=== PATIENT | male | born 1945 | race Caucasian/White ===

== ENCOUNTER 2016-11-20 08:43 | Outpatient (CLI) | payer MEDICARE | END 2016-11-20 08:44 | disposition home or self-care (01) | DX: S46.812A Strain of other muscles, fascia and tendons at shoulder and upper arm level, left arm, initial encounter (principal); M24.012 Loose body in left shoulder; M75.22 Bicipital tendinitis, left shoulder; M75.82 Other shoulder lesions, left shoulder ==

== ENCOUNTER 2017-02-22 09:00 | Outpatient (CLI) | payer MEDICARE | END 2017-02-22 09:01 | disposition home or self-care (01) | DX: R73.01 Impaired fasting glucose (principal) ==

== ENCOUNTER 2017-06-08 10:39 | Emergency (ER) | payer MEDICARE ==
[2017-06-08 10:46] VITALS: BP 171/75
[2017-06-08] MEDS ORDERED: LIDOCAINE PATCH 5% TOP STA (12:44)
[2017-06-08] MEDS ORDERED: DEXAMETHASONE 10 MG/ML VIAL PO STA (12:44)
--- NOTE | 2017-06-08 12:47 | ED Physician Documentation ---
History of Present Illness - Stated complaint Stated Complaint: NECK PX - Chief complaint Chief Complaint: Heent - Additonal information Additional information: hx from pt 71 male known cervical HNP lot of activity recently fishing and crabbing 3 days ago started with ant chest pain, that has now moved to his left neck chest pain was not changed by movement or palpation, also no associated fever cough soa NV diaphoresis neck pain is worse with moving, was rad down ulnar aspect arm but not now, no numbness or weakness, no leg sx, no incont no fevers Review of Systems Constitutional: denies: Fever, Chills Cardiac: reports: Chest pain / pressure Respiratory: denies: Dyspnea GI: denies: Abdominal Pain, Nausea, Vomiting : denies: Incontinent Musculoskeletal: reports: Neck pain, Extremity pain (rad down left ulnar arm to elbow) Neurologic: denies: Focal weakness, Numbness Endocrine: denies: Easy bruising / bleeding Immunocompromised: denies: Immunocompromised PD PAST MEDICAL HISTORY - Past Medical History Past Medical History: Yes Cardiovascular: None Respiratory: Sleep apnea Endocrine/Autoimmune: None GI: GERD, Colon polyps : None HEENT: None Psych: None Musculoskeletal: None Derm: None Other Past Medical History: hyperglycemia - Past Surgical History Past Surgical History: Yes Ortho: Rotator cuff repair HEENT: Tonsil/Adenoidectomy - Present Medications Home Medications: Ambulatory Orders Medication Instructions Recorded Confirmed Aspirin 81 mg PO DAILY 09/14/16 06/08/17 Tadalafil [Cialis] 10 mg PO PRN 09/14/16 06/08/17 raNITIdine [Zantac] 150 mg PO DAILY 09/14/16 09/14/16 Carisoprodol [Soma] 350 mg PO QPM PRN #7 tablet 06/08/17 Lidocaine Patch 5% [Lidoderm Patch] 1 each TOP DAILY PRN #10 patch 06/08/17 predniSONE [Deltasone] 20 mg PO [id number] #21 tab 06/08/17 - Allergies Allergies/Adverse Reactions: Allergies Allergy/AdvReac Type Severity Reaction Status Date / Time No Known Drug Allergies Allergy Verified 11/22/15 13:38 - Social History Does the pt smoke?: No Smoking Status: Never smoker Does the pt drink ETOH?: Yes Does the pt have substance abuse?: Yes Substance Use and Type: Marijuana PD ED PE NORMAL - Vitals Vital signs reviewed: Yes - Neck Neck: No bony TTP, Other (left sided ST TTP and limited ROM, no rash no bruising no swelling) - Cardiac Cardiac: RRR - Respiratory Respiratory: No respiratory distress, Clear bilaterally, Other (chest wall non TTP no rash) - Abdomen Abdomen: Soft, Non tender - Derm Derm: Normal color, No rash - Neuro Neuro: Alert and oriented X 3, No motor deficit, No sensory deficit, Normal speech, Other (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 ABD thumbs up OK wrist ext all 5/5, nl sensation to all dermatomes, + radial pulse and cap refill, no numbness or weakenss to lower ext, denies saddle anesthesia and incontinence) Results - Vitals Vitals: Vital Signs - 24 hr 06/08/17 10:42 Temperature 36.1 C L Heart Rate 66 Respiratory 16 Rate Blood Pressure 171/75 H O2 Saturation 97 Oxygen O2 Source Room air - EKG (time done) 1252 Rate: Rate (enter#) Rhythm: NSR Intervals: Normal IL QRS: Normal, LVH Ischemia: Normal ST segments - Labs Labs: Laboratory Tests 06/08/17 13:00 Troponin I < 0.04 PD MEDICAL DECISION MAKING - ED course ED course: unclear how a cervical HNP would cause chest pain so did get and EKG and trop - neg after several days of sx - also checked CXR and aortic silhouette nl per rad read - now chest pain gone and sx pt has sx very c/w muscular neck pain and spasm with a component of radiculopathy down the left arm Departure - Departure Disposition: 01 Home, Self Care Clinical Impression: Neck pain, Cervical radiculopathy Condition: Good Instructions: ED Neck Back Pain General, ED Cervical Radiculopathy Follow-Up: Ollie Howe MD [Primary Care Provider] - Prescriptions: predniSONE [Deltasone] 20 mg PO [id number] #21 tab Lidocaine Patch 5% [Lidoderm Patch] 1 each TOP DAILY PRN #10 patch PRN Reason: Pain Carisoprodol [Soma] 350 mg PO QPM PRN #7 tablet PRN Reason: muscle spasm Comments: The EKG and blood test for your heart and chest xrays were fine - it does not look like the chest pain was due to heart or aorta problem I have prescribed lidocaine patches that you can apply to the sore area on your neck for 12 hr a day. And also a tapering course of steroid to decrease the nerve pain and inflammation And a muscle relaxant that you can take at night because it might make you a little bit drowsy You can also take tylenol for the pain. The orthopedic group at [facility] not manage spine problems but i believe the group in [place] does - please ask your PMD for a referral And please have your PMD recheck your blood pressure - it was high today
[2017-06-08] MEDS ORDERED: LIDOCAINE PATCH 5% TOP ONE (12:54)
[2017-06-08] MEDS ORDERED: DEXAMETHASONE 10 MG/ML VIAL ONE (12:54)
[2017-06-08] MEDS ORDERED: CHERRY SYRUP 10 ML UDC PO ONE (12:55)
--- NOTE | 2017-06-08 14:18 | XRAY Preliminary Report ---
Exam: XR Chest 2 View PA/LAT IMPRESSION: Negative 2-view chest radiography. [facility] SITE ID: [id number]
--- NOTE | 2017-06-08 14:20 | XRAY Report ---
EXAM: CHEST RADIOGRAPHY EXAM DATE: 06/08/2017 02:09 PM. CLINICAL HISTORY: Chest pain left neck pain, eval aorta size. COMPARISON: None. TECHNIQUE: 2 views. FINDINGS: Lungs/Pleura: No focal opacities evident. No pleural effusion. No pneumothorax. Normal volumes. Mediastinum: Heart and mediastinal contours are unremarkable. Aorta is not enlarged. Other: Minor degenerative change in the spine. IMPRESSION: Negative 2-view chest radiography. [facility] Referring Provider Line: [phone] SITE ID: [id number]
== END 2017-06-08 14:36 | disposition home or self-care (01) ==
LOC: ED 10:39
DX: M50.10 Cervical disc disorder with radiculopathy, unspecified cervical region (principal); R07.9 Chest pain, unspecified; M79.602 Pain in left arm; Z79.82 Long term (current) use of aspirin
CPT/HCPCS: 36415; 71020; 84484; 93005; 99283; 99284; A9270

== ENCOUNTER 2017-12-06 10:01 | Outpatient (CLI) | payer MEDICARE ==
--- NOTE | 2017-12-06 13:51 | XRAY Report ---
DATE OF SERVICE: 12/06/2017 TWO VIEW CHEST: 12/06/2017 CLINICAL INDICATION: Chest pain. COMPARISON: 06/08/2017. FINDINGS: Frontal and lateral views of the chest demonstrate a normal cardiac silhouette. The lungs are clear. No effusion or pneumothorax is present. IMPRESSION: NORMAL CHEST. TD: 12/06/2017 13:50
== END 2017-12-06 10:02 | disposition home or self-care (01) ==
LOC: DI 10:01
PROVIDERS: ATTEND Internal Medicine
DX: R07.9 Chest pain, unspecified (principal)
CPT/HCPCS: 71046

== ENCOUNTER 2018-01-25 08:27 | Outpatient (CLI) | payer MEDICARE ==
[2018-01-25 10:50] LABS: BASOPHILS % (AUTO) 0.6 %; EOSINOPHILS # (AUTO) 0.4 10^3/uL (0.0-0.7); EOSINOPHILS % (AUTO) 7.9 %; HGB - HEMOGLOBIN 13.6 g/dL (14.0-18.0); LYMPHOCYTES # (AUTO) 1.3 10^3/uL (1.5-3.5); LYMPHOCYTES % (AUTO) 23.6 %; MEAN CORPUSCULAR HEMOGLOBIN 34.3 pg (27.0-31.0); MEAN CORPUSCULAR HGB CONC 33.7 g/dL (32.0-36.0); MEAN CORPUSCULAR VOLUME 101.5 fL (80.0-94.0); MEAN PLATELET VOLUME 9.3 fL (7.4-11.4); MONOCYTES # (AUTO) 0.8 10^3/uL (0.0-1.0); MONOCYTES % (AUTO) 14.4 %; NEUTROPHILS % (AUTO) 53.5 %; PLT - PLATELET COUNT 194 10^3/uL (130-450); RED BLOOD COUNT 3.97 10^6/uL (4.70-6.10); RED CELL DISTRIBUTION WIDTH 14.3 % (12.0-15.0); WHITE BLOOD COUNT 5.6 x10^3/uL (4.8-10.8)
== END 2018-01-25 08:28 | disposition home or self-care (01) ==
LOC: LAB.F 08:27
PROVIDERS: ATTEND Internal Medicine
DX: R73.01 Impaired fasting glucose (principal); D69.6 Thrombocytopenia, unspecified
CPT/HCPCS: 36415; 82947; 85025

== ENCOUNTER 2018-04-17 11:35 | Outpatient (CLI) | payer MEDICARE ==
[2018-04-17 18:22] LABS: BILIRUBIN,URINE NEGATIVE (NEGATIVE); GLUCOSE, URINE (UA) NEGATIVE (NEGATIVE); KETONES,URINE (UA) NEGATIVE (NEGATIVE); LEUKOCYTE ESTERASE, URINE NEGATIVE (NEGATIVE); NITRITE,URINE NEGATIVE (NEGATIVE); OCCULT BLOOD,URINE NEGATIVE (NEGATIVE); PH,URINE 6.5 PH (5.0-7.5); PROTEIN,URINE NEGATIVE (NEGATIVE); UROBILINOGEN,URINE 0.2 (NORMAL) E.U./dL (NORMAL)
[2018-04-17 18:26] LABS: CLARITY,URINE CLEAR (CLEAR)
== END 2018-04-17 11:36 | disposition home or self-care (01) ==
LOC: LAB.F 11:35
PROVIDERS: ATTEND Internal Medicine
DX: R35.0 Frequency of micturition (principal)
CPT/HCPCS: 81001; 81003; 87086

== ENCOUNTER 2018-06-13 14:17 | Emergency (ER) | payer MEDICARE ==
[2018-06-13 14:24] VITALS: BP 157/65
[2018-06-13] MEDS ORDERED: DEXAMETHASONE 10 MG/ML VIAL PO STA (15:13)
--- NOTE | 2018-06-13 15:15 | ED Physician Documentation ---
PD HPI BACK PAIN - Stated complaint Stated Complaint: BACK/LEG PX - Chief complaint Chief Complaint: Back Pain - History obtained from History obtained from: Patient, Family - History of Present Illness Timing - onset: How many weeks ago (1) Timing - duration: Weeks (1) Timing - details: Gradual onset, Still present Location: Lower, Right Quality: Pain, Spasm, Sharp Associated symptoms: No: Fever, Weakness, Numbness, Incontinent of urine, Unable to urinate, Hematuria, Incontinent of stool Improves with: Rest, Position Worsened by: Movement Similar symptoms before: Diagnosis (back strain) Recently seen: Not recently seen - Additional information Additional information: 72-year-old male who has had episodes of back pain previously with a stiff back has now developed back pain that is much worse than his usual and is radiating down his right leg. He denies any saddle anesthesia or incontinence of bowel or bladder. He denies any numbness to his extremities he does have pain radiating down the lateral aspect of the thigh and into the groin. He has pain radiating from his back through the sciatic notch. He has tried a heating pack he has tried some ibuprofen and some Tylenol. Review of Systems Constitutional: denies: Fever Eyes: denies: Decreased vision Ears: denies: Ear pain Nose: denies: Congestion Throat: denies: Sore throat Respiratory: denies: Cough GI: denies: Abdominal Pain, Nausea, Vomiting, Constipation, Diarrhea : reports: Frequency. denies: Dysuria Skin: denies: Rash Musculoskeletal: reports: Neck pain, Back pain, Extremity pain PD PAST MEDICAL HISTORY - Past Medical History Past Medical History: Yes Cardiovascular: None Respiratory: Sleep apnea Endocrine/Autoimmune: None GI: GERD, Colon polyps : None HEENT: None Psych: None Musculoskeletal: None Derm: None - Past Surgical History Past Surgical History: Yes Ortho: Rotator cuff repair HEENT: Tonsil/Adenoidectomy - Present Medications Home Medications: Ambulatory Orders Medication Instructions Recorded Confirmed Cyclobenzaprine [Flexeril] 10 mg PO TID PRN #20 tablet 06/13/18 HYDROcod/ACETAM 5/325 [[place] 5/325] 1 - 2 ea PO Q6H PRN #15 tablet 06/13/18 Ibuprofen [Motrin Ib] 1 tab PO DAILY 06/13/18 06/13/18 - Allergies Allergies/Adverse Reactions: Allergies Allergy/AdvReac Type Severity Reaction Status Date / Time No Known Drug Allergies Allergy Verified 06/13/18 14:24 - Social History Does the pt smoke?: No Smoking Status: Never smoker Does the pt drink ETOH?: Yes ETOH Use: Wine, Liquor Does the pt have substance abuse?: Yes Substance Use and Type: Marijuana - Immunizations Immunizations are current?: Yes - POLST Patient has POLST: No PD ED PE NORMAL - Vitals Vital signs reviewed: Yes (hypertensive ) - General General: Alert and oriented X 3, No acute distress, Well developed/nourished - HEENT HEENT: Atraumatic - Respiratory Respiratory: No respiratory distress - Back Back: No CVA TTP, Other (There is tenderness to the paraspinous muscles of the right para lumba spine and tenderness into the sciatic notch ) - Derm Derm: Normal color, Warm and dry, Other - Extremities Extremities: No deformity, No edema - Neuro Neuro: Alert and oriented X 3, rest room matron 2-12 intact, No motor deficit, No sensory deficit, Normal speech Eye Opening: Spontaneous Motor: Obeys Commands Verbal: Oriented GCS Score: 15 - Psych Psych: Normal mood, Normal affect Results - Vitals Vitals: Vital Signs - 24 hr 06/13/18 14:21 Temperature 36.4 C L Heart Rate 84 Respiratory 18 Rate Blood Pressure 157/65 H O2 Saturation 98 Oxygen O2 Source Room air PD MEDICAL DECISION MAKING - ED course Complexity details: reviewed old records, re-evaluated patient, considered differential, d/w patient, d/w family ED course: 72 y/o male with sciatica acutely is given decadron 10mg PO and we will start him on some pain medication and muscle relaxant. We have discussed avoidance of the heating pack and ice and stretch. He has follow up in 7 days with Shyam. - Sepsis Event Vital Signs: Vital Signs - 24 hr 06/13/18 14:21 Temperature 36.4 C L Heart Rate 84 Respiratory 18 Rate Blood Pressure 157/65 H O2 Saturation 98 Oxygen O2 Source Room air Departure - Departure Disposition: 01 Home, Self Care Clinical Impression: Sciatica Qualifiers: Laterality: right Qualified Code(s): M54.31 - Sciatica, right side Condition: Stable Instructions: ED Sciatica Follow-Up: Ollie Howe MD [Primary Care Provider] - Prescriptions: Cyclobenzaprine [Flexeril] 10 mg PO TID PRN #20 tablet PRN Reason: Spasms HYDROcod/ACETAM 5/325 [[place] 5/325] 1 - 2 ea PO Q6H PRN #15 tablet PRN Reason: Pain
== END 2018-06-13 15:30 | disposition home or self-care (01) ==
LOC: ED 14:17
DX: M54.31 Sciatica, right side (principal)
CPT/HCPCS: 99283

== ENCOUNTER 2019-01-20 10:01 | Outpatient (CLI) | payer MEDICARE ==
--- NOTE | 2019-01-22 09:24 | XRAY Report ---
Reason: PAIN IN LEFT FOOT,TACHYCARDIA Procedure Date: 01/20/2019 Accession Number: [id number] / [id number] Procedure: XR - Foot 3 View LT CPT Code: FULL RESULT: EXAM: LEFT FOOT RADIOGRAPHY EXAM DATE: 01/20/2019 10:02 AM. CLINICAL HISTORY: Pain in left foot, tachycardia. COMPARISON: None. TECHNIQUE: 3 views. FINDINGS: Bones: Bones are qualitatively osteopenic with no acute fracture detected. Joints: There are advanced degenerative changes of the midfoot. The talocalcaneonavicular articulation is deranged. Soft Tissues: Normal. No soft tissue swelling. 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 [facility]
== END 2019-01-20 10:02 | disposition home or self-care (01) ==
LOC: DI 10:01
PROVIDERS: ATTEND Internal Medicine
DX: M19.072 Primary osteoarthritis, left ankle and foot (principal); M24.875 Other specific joint derangements left foot, not elsewhere classified; R00.0 Tachycardia, unspecified
CPT/HCPCS: 93005

== ENCOUNTER 2019-02-27 10:30 | Outpatient (CLI) | payer MEDICARE | END 2019-02-27 10:31 | disposition home or self-care (01) | LOC: SC 10:30 | PROVIDERS: ATTEND Internal Medicine Pulmonary Disease | DX: G47.33 Obstructive sleep apnea (adult) (pediatric) (principal) | CPT/HCPCS: 99213; G0463; 99212 ==

== ENCOUNTER 2019-03-06 09:59 | Outpatient (CLI) | payer MEDICARE ==
[2019-03-06 17:40] LABS: BUN - BLOOD UREA NITROGEN 11 mg/dL (6-20); CALCIUM 8.8 mg/dL (8.5-10.3); CARBON DIOXIDE - CO2 29 mmol/L (21-32); CHLORIDE 100 mmol/L (101-111); CHOL/HDL RATIO 3.3 (<5.0); CHOLESTEROL 157 mg/dL; CREATININE 0.8 mg/dL (0.6-1.2); GFR - MDRD 94 (>89); GLUCOSE 98 mg/dL (70-100); HDL CHOLESTEROL 47 mg/dL; LDL CHOLESTEROL,CALCULATED 90 mg/dL; LDL/HDL RATIO 1.9 (<3.6); SODIUM 140 mmol/L (135-145); VLDL CHOLESTEROL 20 mg/dL
== END 2019-03-06 10:00 | disposition home or self-care (01) ==
LOC: LAB.F 09:59
PROVIDERS: ATTEND Internal Medicine
DX: J30.9 Allergic rhinitis, unspecified (principal); N52.9 Male erectile dysfunction, unspecified; Z86.010 Personal history of colon polyps; I10 Essential (primary) hypertension; R73.01 Impaired fasting glucose; G47.33 Obstructive sleep apnea (adult) (pediatric); M79.672 Pain in left foot; R00.0 Tachycardia, unspecified; B35.6 Tinea cruris
CPT/HCPCS: 36415; 80048; 80061; 83721; 84443

== ENCOUNTER 2021-01-16 08:33 | Outpatient (CLI) | payer MEDICARE ==
[2021-01-16 15:56] LABS: CREATININE 0.9 mg/dL (0.6-1.2)
== END 2021-01-16 08:34 | disposition home or self-care (01) ==
LOC: LAB.S 08:33
PROVIDERS: ATTEND Internal Medicine
DX: Z00.00 Encounter for general adult medical examination without abnormal findings (principal); J30.9 Allergic rhinitis, unspecified; I10 Essential (primary) hypertension; R73.01 Impaired fasting glucose; G47.33 Obstructive sleep apnea (adult) (pediatric); R00.0 Tachycardia, unspecified; F41.9 Anxiety disorder, unspecified; F32.9 Major depressive disorder, single episode, unspecified
CPT/HCPCS: 36415; 80048

== ENCOUNTER 2021-10-08 08:26 | Outpatient (CLI) | payer MEDICARE ==
[2021-10-08 15:04] LABS: BASOPHILS % (AUTO) 0.6 %; EOSINOPHILS # (AUTO) 0.3 10^3/uL (0.0-0.7); EOSINOPHILS % (AUTO) 6.7 %; HCT - HEMATOCRIT 43.5 % (42.0-52.0); HGB - HEMOGLOBIN 14.2 g/dL (14.0-18.0); LYMPHOCYTES # (AUTO) 1.2 10^3/uL (1.5-3.5); LYMPHOCYTES % (AUTO) 24.7 %; MEAN CORPUSCULAR HEMOGLOBIN 33.6 pg (27.0-31.0); MEAN CORPUSCULAR HGB CONC 32.6 g/dL (32.0-36.0); MEAN CORPUSCULAR VOLUME 103.1 fL (80.0-94.0); MEAN PLATELET VOLUME 12.1 fL (7.4-11.4); MONOCYTES # (AUTO) 0.6 10^3/uL (0.0-1.0); MONOCYTES % (AUTO) 11.4 %; NEUTROPHILS # (AUTO) 2.7 10^3/uL (1.5-6.6); NEUTROPHILS % (AUTO) 56.2 %; PLT - PLATELET COUNT 167 10^3/uL (130-450); RED BLOOD COUNT 4.22 10^6/uL (4.70-6.10); WHITE BLOOD COUNT 4.8 x10^3/uL (4.8-10.8)
[2021-10-08 15:25] LABS: ALBUMIN 4.2 g/dL (3.2-5.5); ALBUMIN/GLOBULIN RATIO 1.4 (1.0-2.2); CREATININE 0.8 mg/dL (0.6-1.2); POTASSIUM 4.1 mmol/L (3.5-5.0); TOTAL PROTEIN 7.2 g/dL (6.7-8.2)
[2021-10-08 15:35] LABS: THYROID STIMULATING HORMONE 2.1 uIU/mL (0.34-5.60)
[2021-10-08 15:36] LABS: FREE T3 3.45 pg/mL (2.5-3.9)
[2021-10-08 15:37] LABS: FREE T4 (FREE THYROXINE) 0.72 ng/dL (0.58-1.64)
== END 2021-10-08 08:27 | disposition home or self-care (01) ==
LOC: LAB.S 08:26
PROVIDERS: ATTEND Internal Medicine
DX: I10 Essential (primary) hypertension (principal); R73.01 Impaired fasting glucose; R00.0 Tachycardia, unspecified
CPT/HCPCS: 36415; 80053; 84439; 84443; 84481; 85025

== ENCOUNTER 2021-10-09 10:38 | Outpatient (CLI) | payer MEDICARE | END 2021-10-09 10:39 | disposition home or self-care (01) | LOC: RT 10:38 | PROVIDERS: ATTEND Internal Medicine | DX: R00.0 Tachycardia, unspecified (principal) | CPT/HCPCS: 93005 ==

== ENCOUNTER 2021-12-07 09:58 | Outpatient (CLI) | payer MEDICARE ==
--- NOTE | 2021-12-07 11:01 | SLEEP CARE CONSULTATION ---
Information from patient questionnaire entered by Sharyn Rodriguez MA. I have reviewed and concur with the information entered by Sharyn Rodriguez MA. This document represents the service I personally performed and the decisions made by me, Arti Giang MD, [facility]. History of Present Illness Service Date and Time: 12/07/2021 0958 Reason for follow up: annual (LAST SEEN 01/2019) Equipment obtained from: Other Mask brand: Resmed HPI additional information: Mr. Aguillon was diagnosed to have severe obstructive sleep apnea-hypopnea syndrome and returns today for annual follow up of CPAP therapy. The patient re cently purchased a ResMed AirSense 10 online to replace his [employer] devices. He continues to wear ResMed AirFit nasal pillows. He uses the new device nightly and all through the night. The compliance report shows that he uses the device 60 nights out of the past 60 nights, averaging 8.5 hours a night. The nights he did not use the device were because he used his traveling machine. He complains of no particular problem with the device such as soreness on the face, dry nose, epistaxis, nasal congestion or headache. He does not use the heated humidifier. He thinks that the pressure of 9 cmH2O (was 10 16 cmH2 O). On the CPAP therapy he notices improvement in his sleep quality, and that he wakes up feeling fresher in the morning and more awake/alert during the day. [place] Sleepiness Scale score is 14 (was 13). The average residual AHI is 8.3 (was 6.1 in 2016); and average air leak is.7 L/minute. CPAP Compliance Data - Data Reviewed with Patient Average duration of nightly device use: 8 hours 4 minutes Compliance rate %: 91.7 Current pressure setting (cmH2O): 10 - 16 Humidity settin Heated hose settin Average residual AHI: 4.8 Average large leak: 0 Subjective Current pressure setting perceived as: comfortable (RESMED) Initial [place] Sleepiness Scale score: 14 (2021) Allergies and Home Medications Drug allergies reviewed: Yes Home medication list reviewed: Yes Allergy and home medication list: Allergies No Known Drug Allergies Allergy (Verified 06/13/18 14:24) Review of Systems Review of systems same as previous: Yes Physical Exam Vital signs obtained and entered by: ANNETTA HUMPHREY Blood Pressure: 143/89 (RIGHT, PULSE 62) Heart Rate: 63 O2 Saturation: 95 (N95) Height: 5 ft 5 in Weight: 184 lb (W/O CLOTHES) Body Mass Index: 30.6 BMI Classification: Obese Impression and Plan IMPRESSION: 1. Obstructive Sleep Apnea-Hypopnea Syndrome, severe, with the patient continuing to do well on nasal CPAP therapy. He has excellent compliance and significant clinical benefits. The current pressure appears slightly ineffective because it is set lower that the pressure on his [employer] device. Overall, he is very satisfied with treatment and plans to continue with it long-term. PLAN: 1. The ResMed AirSense was set to 10 to 10 - 16 cm H2O manually. 2. Prescription made for a traveling CPAP, so that he could by one online. I recommend he wait a little bit because [employer] most likely will send him a replacement for the [employer]Station Go.. 3. Return in one year for follow up or earlier if there is any problem with the treatment. Counseling Topics: Weight control Prescriptions: CPAP Follow up with Sleep Care in: 1 year Visit Type: In Office Time Spent with Patient (minutes): 15 Provider Statement: I spent 100% of the Face to Face Visit with the patient with greater than 50% spent counseling the patient and coordination of care.
[2021-12-07 11:02] VITALS: BP 143/89
== END 2021-12-07 09:59 | disposition home or self-care (01) ==
LOC: SC 09:58
PROVIDERS: ATTEND Internal Medicine Pulmonary Disease
DX: G47.33 Obstructive sleep apnea (adult) (pediatric) (principal); E66.9 Obesity, unspecified; Z68.30 Body mass index [BMI] 30.0-30.9, adult
CPT/HCPCS: 99212; G0463

== ENCOUNTER 2021-12-31 12:43 | Outpatient (CLI) | payer MEDICARE | END 2021-12-31 12:44 | disposition home or self-care (01) | LOC: DI 12:43 | PROVIDERS: ATTEND Internal Medicine Cardiovascular Disease | DX: I48.91 Unspecified atrial fibrillation (principal); I11.0 Hypertensive heart disease with heart failure; I50.9 Heart failure, unspecified; I35.1 Nonrheumatic aortic (valve) insufficiency | CPT/HCPCS: 93306 ==

== ENCOUNTER 2022-02-27 09:07 | Outpatient (CLI) | payer MEDICARE ==
[2022-02-27 15:29] LABS: BASOPHILS % (AUTO) 0.4 %; EOSINOPHILS # (AUTO) 0.3 10^3/uL (0.0-0.7); EOSINOPHILS % (AUTO) 5.8 %; HCT - HEMATOCRIT 43.6 % (42.0-52.0); HGB - HEMOGLOBIN 14.5 g/dL (14.0-18.0); LYMPHOCYTES # (AUTO) 1.3 10^3/uL (1.5-3.5); LYMPHOCYTES % (AUTO) 25.1 %; MEAN CORPUSCULAR HGB CONC 33.3 g/dL (32.0-36.0); MEAN CORPUSCULAR VOLUME 102.1 fL (80.0-94.0); MEAN PLATELET VOLUME 12.4 fL (7.4-11.4); MONOCYTES # (AUTO) 0.6 10^3/uL (0.0-1.0); NEUTROPHILS # (AUTO) 2.9 10^3/uL (1.5-6.6); NEUTROPHILS % (AUTO) 57.3 %; PLT - PLATELET COUNT 137 10^3/uL (130-450); RED BLOOD COUNT 4.27 10^6/uL (4.70-6.10); RED CELL DISTRIBUTION WIDTH 13.5 % (12.0-15.0)
[2022-02-27 15:38] LABS: ALBUMIN 4.1 g/dL (3.2-5.5); ALBUMIN/GLOBULIN RATIO 1.2 (1.0-2.2); BILIRUBIN,TOTAL 1.1 mg/dL (0.2-1.0); CREATININE 0.7 mg/dL (0.6-1.2); TOTAL PROTEIN 7.6 g/dL (6.7-8.2)
[2022-02-27 16:20] LABS: INR 1.5 (0.8-1.2); PT - PROTHROMBIN TIME 16.3 secs (9.9-12.6)
[2022-02-27 16:37] LABS: PARTIAL THROMBOPLASTIN TIME 33.9 secs (24.9-33.3)
[2022-02-27 21:50] LABS: ESTIMATED AVERAGE GLUCOSE 137 mg/dL (70-100); HEMOGLOBIN A1c% 6.4 % (4.27-6.07)
== END 2022-02-27 09:08 | disposition home or self-care (01) ==
LOC: LAB.S 09:07
PROVIDERS: ATTEND Internal Medicine
DX: I10 Essential (primary) hypertension (principal); I48.91 Unspecified atrial fibrillation; R73.01 Impaired fasting glucose
CPT/HCPCS: 36415; 80053; 83036; 85025; 85610; 85730

== ENCOUNTER 2022-06-01 07:05 | Outpatient (CLI) | payer MEDICARE ==
[2022-06-01 15:11] LABS: BASOPHILS % (AUTO) 0.4 %; EOSINOPHILS # (AUTO) 0.3 10^3/uL (0.0-0.7); EOSINOPHILS % (AUTO) 5.3 %; HCT - HEMATOCRIT 42.4 % (42.0-52.0); HGB - HEMOGLOBIN 14.2 g/dL (14.0-18.0); LYMPHOCYTES # (AUTO) 1.3 10^3/uL (1.5-3.5); LYMPHOCYTES % (AUTO) 25.4 %; MEAN CORPUSCULAR HEMOGLOBIN 34.6 pg (27.0-31.0); MEAN CORPUSCULAR HGB CONC 33.5 g/dL (32.0-36.0); MEAN CORPUSCULAR VOLUME 103.4 fL (80.0-94.0); MEAN PLATELET VOLUME 12.7 fL (7.4-11.4); MONOCYTES # (AUTO) 0.6 10^3/uL (0.0-1.0); MONOCYTES % (AUTO) 12.2 %; NEUTROPHILS # (AUTO) 2.8 10^3/uL (1.5-6.6); NEUTROPHILS % (AUTO) 56.5 %; PLT - PLATELET COUNT 150 10^3/uL (130-450); RED CELL DISTRIBUTION WIDTH 13.5 % (12.0-15.0); WHITE BLOOD COUNT 4.9 x10^3/uL (4.8-10.8)
[2022-06-01 15:21] LABS: ALBUMIN 4.2 g/dL (3.2-5.5); ALBUMIN/GLOBULIN RATIO 1.3 (1.0-2.2); ALKALINE PHOSPHATASE 57 IU/L (42-121); ALT ALANINE AMINOTRANSFERASE 29 IU/L (10-60); AST ASPARTATE AMINOTRANSFERASE 30 IU/L (10-42); BILIRUBIN,TOTAL 0.9 mg/dL (0.2-1.0); BUN - BLOOD UREA NITROGEN 17 mg/dL (6-20); CALCIUM 9.1 mg/dL (8.5-10.3); CARBON DIOXIDE - CO2 26 mmol/L (21-32); CHLORIDE 104 mmol/L (101-111); CHOL/HDL RATIO 1.7 (<5.0); CHOLESTEROL 94 mg/dL; CREATININE 0.8 mg/dL (0.6-1.2); GFR - MDRD 93 (>89); GLUCOSE 113 mg/dL (70-100); HDL CHOLESTEROL 55 mg/dL; LDL CHOLESTEROL,CALCULATED 30 mg/dL; LDL/HDL RATIO 0.5 (<3.6); POTASSIUM 4.2 mmol/L (3.5-5.0); SODIUM 137 mmol/L (135-145); TOTAL PROTEIN 7.5 g/dL (6.7-8.2); TRIGLYCERIDES 45 mg/dL; VLDL CHOLESTEROL 9 mg/dL
[2022-06-01 15:22] LABS: INR 1.5 (0.8-1.2); PT - PROTHROMBIN TIME 16.3 secs (9.9-12.6)
[2022-06-01 16:19] LABS: PARTIAL THROMBOPLASTIN TIME 35.1 secs (24.9-33.3)
== END 2022-06-01 07:06 | disposition home or self-care (01) ==
LOC: LAB.S 07:05
PROVIDERS: ATTEND Internal Medicine
DX: I10 Essential (primary) hypertension (principal); I48.91 Unspecified atrial fibrillation; I25.10 Atherosclerotic heart disease of native coronary artery without angina pectoris; Z79.01 Long term (current) use of anticoagulants
CPT/HCPCS: 36415; 80053; 80061; 83721; 85025; 85610; 85730

== ENCOUNTER 2022-11-19 13:35 | Outpatient (CLI) | payer MEDICARE ==
[2022-11-19 15:00] LABS: BILIRUBIN,URINE NEGATIVE (NEGATIVE); GLUCOSE, URINE (UA) NEGATIVE (NEGATIVE); KETONES,URINE (UA) NEGATIVE (NEGATIVE); LEUKOCYTE ESTERASE, URINE NEGATIVE (NEGATIVE); NITRITE,URINE NEGATIVE (NEGATIVE); OCCULT BLOOD,URINE NEGATIVE (NEGATIVE); PROTEIN,URINE NEGATIVE (NEGATIVE); UROBILINOGEN,URINE 0.2 (NORMAL) E.U./dL (NORMAL)
[2022-11-19 15:07] LABS: CLARITY,URINE CLEAR (CLEAR)
[2022-11-19 15:23] LABS: BACTERIA,URINE None Seen /HPF (None Seen); RBC,URINE 0-5 /HPF (0-5); SQUAMOUS EPITHELIAL CELL,UR NONE SEEN (<= Few); WBC,URINE 0-3 /HPF (0-3)
[2022-11-19 19:56] LABS: CREATININE 0.8 mg/dL (0.6-1.2)
== END 2022-11-19 13:36 | disposition home or self-care (01) ==
LOC: LAB.S 13:35
PROVIDERS: ATTEND Internal Medicine
DX: R35.0 Frequency of micturition (principal); I10 Essential (primary) hypertension
CPT/HCPCS: 36415; 81001; 82565; 87086

== ENCOUNTER 2022-12-06 13:10 | Outpatient (CLI) | payer MEDICARE ==
[2022-12-06] MEDS ORDERED: iohexoL-300 100 ML VIAL ONE (13:16)
[2022-12-06] MEDS ORDERED: iohexoL-300 100 ML VIAL IVP ONE (14:50)
--- NOTE | 2022-12-06 18:16 | CT Report ---
PROCEDURE: ANGIO CHEST W/WO INDICATIONS: THORACIC AORTIC ANURYSM CONTRAST: 80ml Omnipaque 300 TECHNIQUE: After the administration of intravenous contrast, 2 mm axial images were acquired from the pulmonary apices to the posterior costophrenic angles during the systemic arterial phase. In addition, 1 mm yamilex g kernel and 5 mm soft tissue kernel reconstructions were performed. 3-dimensional coronal oblique ma ximum intensity projection (MIP) reformats, 8 mm axial MIP, and 5 mm coronal and sagittal MPR reforma ts were then performed through the thorax. For radiation dose reduction, the following was used: auto mated exposure control, adjustment of mA and/or kV according to patient size. COMPARISON: None FINDINGS: Image quality: Excellent. Thoracic aorta and its attachments: Mildly aneurysmal dilatation of the ascending aorta, measuring 4. 3 cm at the level of the proximal ascending aorta. Normal variant bovine arch anatomy, in which the l eft common carotid arises off the proximal brachiocephalic artery. 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 The transverse arch and descending thoracic aorta are no rmal in caliber. Visualized portions of the abdominal aorta are of normal caliber. Celiac, SMA, and b ilateral renal arteries are patent without stenosis. Incidental note is made of normal. 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 Pulmonary arteries: Pulmonary arteries are normal in size, and demonstrate no intraluminal filling d efects to suggest central pulmonary embolism. Lungs and pleura: Lungs are clear. 6 mm pulmonary nodule, subpleural location, left lower lobe, valentina ge 181/8. No pleural effusions or pneumothorax. Central and peripheral airways are patent. Mediastinum: Heart size is normal, without pericardial effusion. Severe coronary artery calcificati ons including extensive LAD calcifications, first diagonal calcifications, and circumflex calcificati ons. No mediastinal or hilar adenopathy. Thoracic aorta is normal in caliber and enhancement. Esoph britton is normal in caliber, without hiatal hernia. Bones and chest wall: No suspicious bony lesions. Ribs and thoracic spine appear intact throughout. No axillary or supraclavicular adenopathy. Visualized thyroid is unremarkable. Abdomen: Visualized upper abdominal solid organs appear normal in the early arterial phase of enhanc ement. IMPRESSION: 1. Mild aneurysmal dilatation of the ascending aorta, measuring 4.3 cm. 2. Bovine arch anatomy. 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 Excellent 3. Severe coronary artery calcifications. 4. 6 mm left lower lobe pulmonary nodule. Comment: As per the Fleischner Society criteria,If the patient is at low risk for lung cancer follow up CT at 12 months, if unchanged, no further follow up needed. If the patient has risk factors for sana ng cancer, follow up chest CT at 6- 12 months, then at 18-24 months if no change. CLINICAL RECOMMENDATION STATEMENTS: In patients <35 years with an ITN detected on CT, MRI, or extrathyroidal ultrasound, the Committee re commends further evaluation with dedicated thyroid ultrasound if the nodule is "e1 cm and has no susp icious imaging features, and if the patient has normal life expectancy. In patients "e35 years with an ITN detected on CT, MRI, or extrathyroidal ultrasound, the Committee r ecommends further evaluation with dedicated thyroid ultrasound if the nodule is "e1.5 cm and has no s uspicious imaging features, and if the patient has normal life expectancy. (ACR, 2014) Reviewed by: Diaz Kilpatrick MD on 12/06/2022 6:14 PM PST Approved by: Diaz Kilpatrick MD on 12/06/2022 6:14 PM PST Station ID: [id number]
== END 2022-12-06 13:11 | disposition home or self-care (01) ==
LOC: DI 13:10
PROVIDERS: ATTEND Internal Medicine
DX: I71.21 Aneurysm of the ascending aorta, without rupture (principal); I72.8 Aneurysm of other specified arteries; I25.10 Atherosclerotic heart disease of native coronary artery without angina pectoris; R91.1 Solitary pulmonary nodule
CPT/HCPCS: 71275; Q9967

== ENCOUNTER 2023-02-28 10:37 | Outpatient (CLI) | payer MEDICARE ==
[2023-02-28 10:56] LABS: BASOPHILS % (AUTO) 0.5 %; EOSINOPHILS # (AUTO) 0.3 10^3/uL (0.0-0.7); EOSINOPHILS % (AUTO) 4.9 %; HCT - HEMATOCRIT 43.6 % (42.0-52.0); HGB - HEMOGLOBIN 14.5 g/dL (14.0-18.0); LYMPHOCYTES # (AUTO) 1.4 10^3/uL (1.5-3.5); LYMPHOCYTES % (AUTO) 24.3 %; MEAN CORPUSCULAR HEMOGLOBIN 33.7 pg (27.0-31.0); MEAN CORPUSCULAR HGB CONC 33.3 g/dL (32.0-36.0); MEAN CORPUSCULAR VOLUME 101.4 fL (80.0-94.0); MEAN PLATELET VOLUME 10.9 fL (7.4-11.4); MONOCYTES # (AUTO) 0.7 10^3/uL (0.0-1.0); NEUTROPHILS # (AUTO) 3.3 10^3/uL (1.5-6.6); NEUTROPHILS % (AUTO) 57.9 %; PLT - PLATELET COUNT 162 10^3/uL (130-450); RED CELL DISTRIBUTION WIDTH 13.6 % (12.0-15.0); WHITE BLOOD COUNT 5.7 x10^3/uL (4.8-10.8)
[2023-02-28 11:03] LABS: INR 1.2 (0.8-1.2); PT - PROTHROMBIN TIME 13.4 secs (9.9-12.6)
[2023-02-28 11:11] LABS: PARTIAL THROMBOPLASTIN TIME 33.4 secs (24.9-33.3)
[2023-02-28 11:13] LABS: ALBUMIN 4.4 g/dL (3.2-5.5); ALBUMIN/GLOBULIN RATIO 1.3 (1.0-2.2); ALKALINE PHOSPHATASE 60 IU/L (42-121); ALT ALANINE AMINOTRANSFERASE 32 IU/L (10-60); AST ASPARTATE AMINOTRANSFERASE 25 IU/L (10-42); BILIRUBIN,TOTAL 0.7 mg/dL (0.2-1.0); BUN - BLOOD UREA NITROGEN 15 mg/dL (6-20); CALCIUM 9.2 mg/dL (8.5-10.3); CARBON DIOXIDE - CO2 30 mmol/L (21-32); CHLORIDE 105 mmol/L (101-111); CHOL/HDL RATIO 2.3 (<5.0); CHOLESTEROL 119 mg/dL; CREATININE 0.8 mg/dL (0.6-1.2); GFR - MDRD 93 (>89); GLUCOSE 124 mg/dL (70-100); HDL CHOLESTEROL 52 mg/dL; LDL CHOLESTEROL,CALCULATED 51 mg/dL; POTASSIUM 4.3 mmol/L (3.5-5.0); SODIUM 137 mmol/L (135-145); TOTAL PROTEIN 7.7 g/dL (6.7-8.2); TRIGLYCERIDES 82 mg/dL; VLDL CHOLESTEROL 16 mg/dL
[2023-02-28 11:59] LABS: ESTIMATED AVERAGE GLUCOSE 134 mg/dL (70-100); HEMOGLOBIN A1c% 6.3 % (4.27-6.07)
== END 2023-02-28 10:38 | disposition home or self-care (01) ==
LOC: LAB 10:37
PROVIDERS: ATTEND Internal Medicine
DX: I10 Essential (primary) hypertension (principal); I48.91 Unspecified atrial fibrillation; I25.10 Atherosclerotic heart disease of native coronary artery without angina pectoris; Z13.1 Encounter for screening for diabetes mellitus
CPT/HCPCS: 36415; 80053; 80061; 83036; 83721; 85025; 85610; 85730

== ENCOUNTER 2023-03-15 09:03 | Outpatient (CLI) | payer MEDICARE ==
[2023-03-15] MEDS ORDERED: iohexoL-300 100 ML VIAL ONE (09:29)
[2023-03-15] MEDS: iohexoL-300 100 ML VIAL IVP ONE (15:30)
--- NOTE | 2023-03-15 16:49 | CT Report ---
PROCEDURE: ANGIO CHEST W/WO INDICATIONS: Thoracic aortic aneurysm. CONTRAST: 80ml Omnipaque 300 TECHNIQUE: After the administration of intravenous contrast, 2 mm axial images were acquired from the pulmonary apices to the posterior costophrenic angles during the arterial phase. In addition, 1 mm lung kernel and 5 mm soft tissue kernel reconstructions were performed. 3-dimensional coronal oblique maximum int ensity projection (MIP) reformats, 8 mm axial MIP, and 5 mm coronal and sagittal MPR reformats were t hen performed through the thorax. For radiation dose reduction, the following was used: automated exp osure control, adjustment of mA and/or kV according to patient size. COMPARISON: 12/06/2022 FINDINGS: Image quality: Excellent. Large vessels: No filling defects within the opacified pulmonary arteries, accounting for motion and contrast timing. Stable mild ascending aortic aneurysm measuring 4.4 cm. Lungs and pleura: No consolidation. No pleural effusions. No pneumothorax. Stable 6 mm subpleural le ft lower lobe pulmonary nodule, image 181/8. No new or increasing pulmonary nodules. Mediastinum: Heart size is normal. No pericardial effusions. Severe coronary artery calcifications. N o mediastinal adenopathy by size criteria. Chest wall and lower neck: Thyroid is unremarkable. No axillary or supraclavicular adenopathy by size . Bones: No aggressive osseous abnormality. Upper Abdomen: Mild diffuse hepatic steatosis. IMPRESSION: 1. Stable mild ascending aortic aneurysm measuring 4.4 cm. 2. Stable 6 mm left lower lobe pulmonary nodule. 3. Coronary artery disease. 4. Diffuse hepatic steatosis. Comment: Recommend 12 month follow-up CT to document stability of the thoracic aortic aneurysm and pu lmonary nodule. Reviewed by: Diaz Kilpatrick MD on 03/15/2023 4:47 PM PDT Approved by: Diaz Kilpatrick MD on 03/15/2023 4:47 PM PDT Station ID: [id number]
== END 2023-03-15 09:04 | disposition home or self-care (01) ==
LOC: DI 09:03
PROVIDERS: ATTEND Internal Medicine
DX: I71.21 Aneurysm of the ascending aorta, without rupture (principal); R91.1 Solitary pulmonary nodule
CPT/HCPCS: 71275; Q9967

== ENCOUNTER 2023-08-04 07:29 | Day surgery (SDC) | payer MEDICARE ==
[~2023-08-04 07:29] MED LIST: CYCLOPENTOLATE 1% OPHTH DROPS 2 ML ONE; KETOROLAC 0.45% OPHTH DROPS ONE; PHENYLEPHRINE 2.5% OPHTH 2 ML DROPS ONE; PROPARACAINE 0.5% OPHTH DROPS 15 ML ONE
[2023-08-04] MEDS ORDERED: LACTATED RINGERS 1,000 ML IV ONE (07:52)
[2023-08-04] MEDS ORDERED: TRIAMCIN/MOXIFLOX OPHTHALMIC 0.6 ML VIAL IO ONE ×2 (08:22→08:57)
[2023-08-04] MEDS ORDERED: BRIMONIDINE 0.2% OPHTH DROPS 5 ML ONE (08:22)
[2023-08-04] MEDS ORDERED: EPINEPHrine 1 MG/ML AMP ONE (08:22)
[2023-08-04] MEDS ORDERED: TIMOLOL 0.5% OPHTH DROPS ONE (08:22)
[2023-08-04] MEDS ORDERED: BSS/LIDOCAINE/EPINEPHRINE 1 ML VIAL ONE (08:23)
--- NOTE | 2023-08-04 08:27 | ANESTHESIA ---
Pre-Anesthesia VS, & Labs - Diagnosis L nuclear cataract - Procedure extraction L cataract w/IOL Vital Signs: Temp Pulse Resp BP Pulse Ox O2 Flow Rate 36.5 C 61 16 110/51 L 95 08/04/23 07:53 08/04/23 07:53 08/04/23 07:53 08/04/23 07:53 08/04/23 07:53 Height: 5 ft 5 in Weight (kg): 80 kg Body Mass Index: 29.3 BMI Classification: Overweight - NPO >8 hours - Lab Results Lab results reviewed: Yes Home Medications and Allergies Home Medications: Ambulatory Orders Apixaban [Eliquis] 1 tab PO BID 08/03/23 Atorvastatin Calcium 40 mg PO DAILY 08/03/23 Lisinopril [Zestril] 20 mg PO DAILY 08/03/23 Apixaban [Eliquis] 1 tab PO BID 08/03/23 Atorvastatin Calcium 40 mg PO DAILY 08/03/23 Lisinopril [Zestril] 20 mg PO DAILY 08/03/23 Allergies/Adverse Reactions: Allergies Allergy/AdvReac Type Severity Reaction Status Date / Time No Known Drug Allergies Allergy Verified 08/03/23 12:14 Anes History & Medical History - Anesthetic History Anesthesia Complications: reports: No previous complications Family history of Anesthesia Complications: Denies Family history of Malignant Hyperthermia: Denies - Medical History Cardiovascular: reports: Hypertension, High cholesterol, Atrial fibrillation Pulmonary: reports: Sleep apnea Gastrointestinal: reports: GERD, Colon polyps Urinary: reports: None Musculoskeletal: reports: None Endocrine/Autoimmune: reports: None Skin: reports: None Smoking Status: Never smoker - Surgical History Eyes Ears Nose Throat (EENT): reports: Tonsil/Adenoidectomy, Other Orthopedic: reports: Rotator cuff repair Exam General: Alert, Oriented x3, Cooperative Mouth Openin Fingerbreadth Neck Mobility: Normal Mallampati classification: II Thyromental Distance: 4-6 cm Respiratory: Lungs clear, Normal breath sounds, No respiratory distress Cardiovascular: Regular rate (marisabel @50ish), Other (pt states he flips into AF about 2 times a week. Resolves without intervention. Sinus bradycardia on exam) Neurological: Normal speech Cognitive Status: Within normal limits Plan Anesthesia Type: MAC Consent for Procedure(s) Verified and Reviewed: Yes Code Status: Attempt Resuscitation ASA classification: 3-Severe systemic disease Is this case an emergency?: No
[2023-08-04] MEDS ORDERED: BRIMONIDINE 0.2% OPHTH DROPS 5 ML OPTH ONE (08:56)
[2023-08-04] MEDS ORDERED: EPINEPHrine 1 MG/ML AMP IR ONE (08:57)
[2023-08-04] MEDS ORDERED: TIMOLOL 0.5% OPHTH DROPS OPTH ONE (08:57)
[2023-08-04] MEDS ORDERED: PROPARACAINE 0.5% OPHTH DROPS 15 ML EACHEYE ONE (08:57)
[2023-08-04] MEDS ORDERED: BSS/LIDOCAINE/EPINEPHRINE 1 ML SYRINGE IO ONE (08:57)
[2023-08-04] MEDS ORDERED: VANCOMYCIN OPHTH (TOPICAL) 10 MG/ML SYRINGE TOP ONE (08:57)
[2023-08-04] MEDS ORDERED: MIDAZOLAM 2 MG/2 ML VIAL ONE (09:00)
[2023-08-04] MEDS ORDERED: LACTATED RINGERS 300 ML IV ONE ×2 (09:31)
--- NOTE | 2023-08-04 09:50 | ANESTHESIA POST OP EVALUATION ---
Anesthesia Post Eval - Post Anesthesia Eval Vitals: Last Vital Signs Temp 36 C L 08/04/23 09:31 Pulse 56 L 08/04/23 09:31 Resp 14 08/04/23 09:31 BP 108/47 L 08/04/23 09:31 Pulse Ox 98 08/04/23 09:31 O2 Flow Rate CV Function Including HR & BP: Stable Pain Control: Satisfactory Nausea & Vomiting: Negative Mental Status: Baseline Respiratory Status: Airway Patent Hydration Status: Satisfactory Anesthesia Complications: None
[2023-08-04 10:01] VITALS: BP 106/50; O2SAT 96
--- NOTE | 2023-08-04 10:44 | OPERATIVE REPORT ---
Operative Report - Other Other Information/Narrative: Date of Surgery: 08/04/23 Preop Dx: Visually significant cataract left eye. This was the first cataract surgery. Postop Dx: Same Procedure: Phacoemulsification with posterior chamber toric intraocular lens implant left eye Surgeon: Dr. Davie Cooley Anesthesia: Monitored anesthesia care Complications: IOL trailing haptic avulsion during implantation with subsequent explantation and replacement. Operative Indications: This is a 77-year-old M with progressive vision loss in the left eye due to 3-4+ nuclear sclerotic cataract. Best corrected visual acuity was 20/30 with glare to 20/200 vision in the left eye. Indications for surgery were: - Overall decrease in vision - Difficulty seeing words on a computer screen - Difficulty reading - Difficulty seeing street signs - Difficulty driving in low light or at night - Difficulty driving at night because of headlights from other vehicles - Difficulty with glare or bright lights in any situation The patient was consented at length concerning the risks and benefits of cataract surgery after which the patient expressed a desire to proceed with surgery. Operative Procedure: The patients cornea was marked in the pre-surgical area to indicate the axis for the toric intraocular lens. The patient was taken into OR#3 and placed under monitored anesthesia care. A surgical time-out was conducted confirming correct patient, correct procedure, and correct surgical site. The patient was given topical anesthesia and then prepped and draped in the usual sterile fashion. The eye was entered at the 6 and 3 oclock positions. Intracameral Shugarcaine was injected into the anterior chamber followed by a dispersive viscoelastic. A continuous-tear curvilinear capsulorhexis was performed. The nucleus was hydrodissected and phacoemulsified. The cortex was evacuated using automated infusion and aspiration. A cohesive viscoelastic was injected into the capsular bag and a 21.0 diopter toric intraocular lens was inserted through the phaco wound but the trailing haptic was jammed between the injector barrel and the injector plunger. Neither advancing the plunger nor retracting the plunger seemed to dislodge the haptic. During retraction the IOL haptic parted from the IOL leaving the IOL in the anterior chamber with only one haptic. The IOL in the anterior chamber was cut into three pieces using microsurgical graspers and microsurgical scissors and the pieces removed. A 21.0 diopter toric intraocular lens was inserted into the bag and rotated to axis 010. Infusion and aspiration were used to evacuate the viscoelastic materials from the eye and the IOL was verified to remain on axis. The wounds were hydrated and the eye inflated to physiologic pressure using balanced salt solution. Approximately 0.25ml of a mixture of triamcinolone and moxifloxacin was injected trans-sclerally into the vitreous in the inferotemporal quadrant using a 30 gauge cannula. An additional 0.25ml of a mixture of triamcinolone and moxifloxacin was injected subconjunctivally in the superior quadrant for infection and inflammation prophylaxis. Wound integrity was checked with Weck-Mahogany sponges and the IOL axis was once again verified to be on the correct axis. The patient was taken from the operating room in good condition, he and his informed of the complication, and given post-op instructions.
== END 2023-08-04 07:30 | disposition home or self-care (01) ==
LOC: SDS 07:29
PROVIDERS: ATTEND Ophthalmology
DX: H25.12 Age-related nuclear cataract, left eye (principal); I10 Essential (primary) hypertension; G47.30 Sleep apnea, unspecified
CPT/HCPCS: 66984; A9270; J3490; J7120; V2632; V2787

== ENCOUNTER 2023-08-19 07:53 | Outpatient (CLI) | payer MEDICARE ==
[2023-08-19 14:47] LABS: CREATININE 0.9 mg/dL (0.6-1.3)
== END 2023-08-19 07:54 | disposition home or self-care (01) ==
LOC: LAB.S 07:53
PROVIDERS: ATTEND Nurse Practitioner Family
DX: D68.69 Other thrombophilia (principal); I48.91 Unspecified atrial fibrillation
CPT/HCPCS: 36415; 82565

== ENCOUNTER 2024-01-12 08:06 | Day surgery (SDC) | payer MEDICARE ==
[2024-01-12] MEDS: LACTATED RINGERS 1,000 ML IV ONE ×2 (08:38→09:56)
[2024-01-12] MEDS: KETOROLAC 0.45% OPHTH DROPS ONE (08:45)
[2024-01-12] MEDS: PROPARACAINE 0.5% OPHTH DROPS 15 ML ONE (08:45)
[2024-01-12] MEDS ORDERED: TRIAMCIN/MOXIFLOX OPHTHALMIC 0.6 ML VIAL IO ONE (08:59)
[2024-01-12] MEDS ORDERED: EPINEPHrine 1 MG/ML AMP ONE (08:59)
[2024-01-12] MEDS ORDERED: BRIMONIDINE 0.2% OPHTH DROPS 5 ML ONE (08:59)
[2024-01-12] MEDS ORDERED: BSS/LIDOCAINE/EPINEPHRINE 1 ML VIAL ONE (09:00)
--- NOTE | 2024-01-12 09:02 | ANESTHESIA ---
Pre-Anesthesia VS, & Labs - Diagnosis right eye cataract - Procedure right eye cataract extraction with iOL implant Vital Signs: Temp Pulse Resp BP Pulse Ox O2 Flow Rate 36.1 C L 42 L 16 119/56 L 98 01/12/24 08:39 01/12/24 08:39 01/12/24 08:39 01/12/24 08:39 01/12/24 08:39 Height: 5 ft 5 in Weight (kg): 84.1 kg Body Mass Index: 30.8 BMI Classification: Obese - NPO >8 hours Home Medications and Allergies Home Medications: Ambulatory Orders Metoprolol Tartrate [Lopressor] 25 mg PO BID 01/12/24 Apixaban [Eliquis] 1 tab PO BID 08/03/23 Atorvastatin Calcium 40 mg PO DAILY 08/03/23 Lisinopril [Zestril] 20 mg PO DAILY 08/03/23 Metoprolol Tartrate [Lopressor] 25 mg PO BID 01/12/24 Allergies/Adverse Reactions: Allergies Allergy/AdvReac Type Severity Reaction Status Date / Time No Known Drug Allergies Allergy Verified 01/12/24 08:53 Anes History & Medical History - Anesthetic History Anesthesia Complications: reports: No previous complications - Medical History Cardiovascular: reports: Hypertension, High cholesterol, Atrial fibrillation Pulmonary: reports: Sleep apnea, CPAP use Gastrointestinal: reports: GERD, Colon polyps Urinary: reports: None Neuro: reports: None Musculoskeletal: reports: None Endocrine/Autoimmune: reports: None Skin: reports: None Smoking Status: Never smoker Psychosocial: reports: No issues indicated History of Cancer?: No - Surgical History Eyes Ears Nose Throat (EENT): reports: Cataracts, Tonsil/Adenoidectomy, Other Orthopedic: reports: Rotator cuff repair Exam General: Alert, Oriented x3, Cooperative, No acute distress Dental: WNL Mouth Openin Fingerbreadth Neck Mobility: Normal Mallampati classification: II Thyromental Distance: 4-6 cm Mental/Cognitive Status: Alert/Oriented X3, Normal for patient Plan Anesthesia Type: MAC Consent for Procedure(s) Verified and Reviewed: Yes Code Status: Attempt Resuscitation ASA classification: 3-Severe systemic disease Is this case an emergency?: No
[2024-01-12] MEDS ORDERED: TIMOLOL 0.5% OPHTH DROPS ONE (09:14)
[2024-01-12] MEDS ORDERED: MIDAZOLAM 2 MG/2 ML VIAL ONE (09:24)
[2024-01-12] MEDS ORDERED: fentaNYL 100 MCG/2 ML VIAL ONE (09:25)
[2024-01-12] MEDS: EPINEPHrine 1 MG/ML AMP IR ONE (09:46)
[2024-01-12] MEDS: BRIMONIDINE 0.2% OPHTH DROPS 5 ML OPTH ONE (09:46)
[2024-01-12] MEDS: BSS/LIDOCAINE/EPINEPHRINE 1 ML SYRINGE IO ONE (09:47)
[2024-01-12] MEDS: TIMOLOL 0.5% OPHTH DROPS OPTH ONE (09:47)
[2024-01-12] MEDS: TRIAMCIN/MOXIFLOX OPHTHALMIC 0.6 ML VIAL IO ONE (09:48)
[2024-01-12] MEDS: VANCOMYCIN OPHTH (TOPICAL) 10 MG/ML SYRINGE TOP ONE (09:48)
[2024-01-12] MEDS: PROPARACAINE 0.5% OPHTH DROPS 15 ML EACHEYE ONE (09:48)
--- NOTE | 2024-01-12 09:56 | OPERATIVE REPORT ---
Operative Report - Other Other Information/Narrative: Date of Surgery: 01/12/24 Preop Dx: Visually significant cataract right eye. Cataract surgery was performed in the left eye on . Postop Dx: Same Procedure: Phacoemulsification with posterior chamber toric intraocular lens implant right eye Surgeon: Dr. Davie Cooley Anesthesia: Monitored anesthesia care Complications: None Operative Indications: This is a 78-year-old M with progressive vision loss in the right eye due to 3+ nuclear sclerotic cataract. Best corrected visual acuity was 20/30 with glare to 20/70 vision in the right eye. Indications for surgery were: - Difficulty seeing words on a computer screen - Difficulty reading - Difficulty seeing words, closed captions, or game scores on TV - Difficulty seeing street signs - Difficulty driving in low light or at night - Difficulty driving at night because of headlights from other vehicles - Difficulty with glare or bright lights in any situation The patient was consented at length concerning the risks and benefits of cataract surgery after which the patient expressed a desire to proceed with surgery. Operative Procedure: The patients cornea was marked in the pre-surgical area to indicate the axis for the toric intraocular lens. The patient was taken into OR#3 and placed under monitored anesthesia care. A surgical time-out was conducted confirming correct patient, correct procedure, and correct surgical site. The patient was given topical anesthesia and then prepped and draped in the usual sterile fashion. The eye was entered at the 6 and 3 oclock positions. Intracameral Shugarcaine was injected into the anterior chamber followed by a dispersive viscoelastic. A continuous-tear curvilinear capsul orhexis was performed. The nucleus was hydrodissected and phacoemulsified. The cortex was evacuated using automated infusion and aspiration. A cohesive viscoelastic was injected into the capsular bag and a 19.5 diopter toric intraocular lens was inserted into the bag and rotated to axis 010. Infusion and aspiration were used to evacuate the viscoelastic materials from the eye and the IOL was verified to remain on axis. The wounds were hydrated and the eye inflated to physiologic pressure using balanced salt solution. Approximately 0.25ml of a mixture of triamcinolone and moxifloxacin was injected trans- sclerally into the vitreous in the inferotemporal quadrant using a 30 gauge cannula. An additional 0.25ml of a mixture of triamcinolone and moxifloxacin was injected subconjunctivally in the superior quadrant for infection and inflammation prophylaxis. Wound integrity was checked with Weck-Mahogany sponges and the IOL axis was once again verified to be on the correct axis. The patient was taken from the operating room in good condition and given post-op instructions.
[2024-01-12 10:12] VITALS: BP 115/42; O2SAT 94
--- NOTE | 2024-01-12 15:44 | ANESTHESIA POST OP EVALUATION ---
Anesthesia Post Eval - Post Anesthesia Eval Vitals: Last Vital Signs Temp 36.8 C 01/12/24 09:56 Pulse 51 L 01/12/24 10:07 Resp 14 01/12/24 10:07 BP 115/42 L 01/12/24 10:07 Pulse Ox 94 01/12/24 10:07 O2 Flow Rate CV Function Including HR & BP: Stable Pain Control: Satisfactory Nausea & Vomiting: Negative Mental Status: Baseline Respiratory Status: Airway Patent Hydration Status: Satisfactory Anesthesia Complications: None
== END 2024-01-12 08:07 | disposition home or self-care (01) ==
LOC: SDS 08:06
PROVIDERS: ATTEND Ophthalmology
DX: H25.11 Age-related nuclear cataract, right eye (principal); G47.30 Sleep apnea, unspecified; I48.91 Unspecified atrial fibrillation; Z79.01 Long term (current) use of anticoagulants; I10 Essential (primary) hypertension; Z87.891 Personal history of nicotine dependence
CPT/HCPCS: 66984; A9270; J3490; J7120; V2632; V2787

== ENCOUNTER 2024-03-05 06:40 | Outpatient (CLI) | payer MEDICARE | END 2024-03-05 23:59 | disposition EMS.NT | LOC: EMS 06:40 | DX: M54.9 Dorsalgia, unspecified (principal) ==

== ENCOUNTER 2024-03-05 07:50 | Emergency (ER) | payer MEDICARE ==
[2024-03-05] MEDS: ACETAMINOPHEN 325 MG TABLET PO STA (08:58)
[2024-03-05] MEDS: CYCLOBENZAPRINE 10 MG TABLET PO STA (08:59)
[2024-03-05] MEDS: LIDOCAINE PATCH 5% TOP STA (08:59)
--- NOTE | 2024-03-05 09:13 | XRAY Report ---
PROCEDURE: Hip w/Pelvis 2-3V LT INDICATIONS: pain TECHNIQUE: 2 views of the hip were acquired. COMPARISON: None. FINDINGS: Bones: No fractures or dislocations. Mild to moderate bilateral hip joint osteoarthritic changes are seen. No evidence of avascular necrosis of femoral head. Degenerative disc disease in visualized low er lumbar spine is seen. No suspicious bony lesions. Soft tissues: No suspicious soft tissue calcifications or masses. IMPRESSION: No acute bony abnormality. 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 No evidence of alice scular necrosis. Degenerative disc disease in lower lumbar spine. Reviewed by: Yasmany George MD on 03/05/2024 9:12 AM PDT Approved by: Yasmany George MD on 03/05/2024 9:12 AM PDT Station ID: [id number]
--- NOTE | 2024-03-05 09:39 | ED Physician Documentation ---
History of Present Illness - Stated complaint Stated Complaint: LEG PX,HIP PX - Chief complaint Chief Complaint: Back Pain - History obtained from History obtained from: Patient - Additonal information Additional information: Patient is an 78-year-old male presenting for evaluation of pain from the left buttock radiating down the left leg which has been ongoing for at least a month. Reports associated numbness in the leg. Denies numbness in the groin, loss of bowel or bladder control. He has seen his primary care provider for this. He denies any injury or trauma. He has been undergoing physical therapy for the past few weeks and also has been on a low-dose of prednisone daily for 2 weeks. He states that the pain was getting better but since yesterday started having increased pain. No fevers. Review of Systems Constitutional: denies: Fever Cardiac: denies: Chest pain / pressure Respiratory: denies: Dyspnea GI: denies: Abdominal Pain, Vomiting : denies: Dysuria, Incontinent Musculoskeletal: reports: Back pain PD PAST MEDICAL HISTORY - Past Medical History Cardiovascular: Hypertension, High cholesterol, Atrial fibrillation Respiratory: Sleep apnea, CPAP use Neuro: None Endocrine/Autoimmune: None GI: GERD, Colon polyps : None HEENT: Chronic vision loss Psych: None Musculoskeletal: None Derm: None - Past Surgical History Past Surgical History: Yes Ortho: Rotator cuff repair HEENT: Cataracts, Tonsil/Adenoidectomy, Other - Present Medications Home Medications: Ambulatory Orders Medication Instructions Recorded Confirmed Apixaban [Eliquis] 1 tab PO BID 08/03/23 01/12/24 Atorvastatin Calcium 40 mg PO DAILY 08/03/23 01/12/24 Lisinopril [Zestril] 20 mg PO DAILY 08/03/23 01/12/24 Metoprolol Tartrate [Lopressor] 25 mg PO BID 01/12/24 01/12/24 Acetaminophen [Tylenol] 650 mg PO Q6H PRN #30 tablet 03/05/24 Cyclobenzaprine [Flexeril] 10 mg PO TID PRN #20 tablet 03/05/24 Lidocaine Patch 5% [Lidoderm Patch] 1 patch TOP DAILY PRN #10 patch 03/05/24 - Allergies Allergies/Adverse Reactions: Allergies Allergy/AdvReac Type Severity Reaction Status Date / Time No Known Drug Allergies Allergy Verified 03/05/24 07:59 - Social History Does the pt smoke?: No Smoking Status: Never smoker Does the pt drink ETOH?: Yes Does the pt have substance abuse?: Yes - Immunizations Immunizations are current?: Yes - POLST Patient has POLST: No PD ED PE NORMAL - General General: Alert and oriented X 3, No acute distress, Well developed/nourished - HEENT HEENT: Atraumatic - Neck Neck: Supple, no meningeal sign - Cardiac Cardiac: RRR, Strong equal pulses - Respiratory Respiratory: No respiratory distress, Clear bilaterally - Abdomen Abdomen: Normal bowel sounds, Soft, Non tender, Non distended - Back Back: No spinal TTP - Derm Derm: Warm and dry - Extremities Extremities: Other (Normal strength in bilateral hip flexion, knee extension and flexion, ankle dorsiflexion and plantarflexion; Reports pain in the left buttock, no erythema or swelling) - Neuro Neuro: Alert and oriented X 3, No motor deficit, No sensory deficit, Normal speech Results - Vitals Vitals: Vital Signs - 24 hr 03/05/24 03/05/24 07:56 09:42 Temperature 36.4 C L Heart Rate 51 L 60 Respiratory 20 20 Rate Blood Pressure 134/74 H 145/72 H O2 Saturation 95 98 Oxygen O2 Source Room air PD Medical Decision Making - ED course Complexity details: reviewed results, re-evaluated patient, d/w patient, d/w family ED course: Patient is an 78-year-old male presenting for evaluation of pain from the left buttock to the left leg which has been going on for the last week and he has been undergoing physical therapy for sciatica. No trauma or noted injury. Has good range of motion of both hips. An x-ray was obtained which I reviewed I see no signs of fracture or dislocation. No red flag signs or symptoms in regards to his back pain. He is feeling much better after acetaminophen, lidocaine patch and Flexeril and is ambulating here without any difficulty. Patient counseled on need for continued close follow-up with his primary care provider as well as advised on concerning symptoms to return for. No abdominal symptoms. Departure - Departure Disposition: 01 Home, Self Care Clinical Impression: Sciatica Condition: Stable Instructions: ED Sciatica Prescriptions: Cyclobenzaprine [Flexeril] 10 mg PO TID PRN #20 tablet PRN Reason: Spasms Lidocaine Patch 5% [Lidoderm Patch] 1 patch TOP DAILY PRN #10 patch PRN Reason: pain Acetaminophen [Tylenol] 650 mg PO Q6H PRN #30 tablet PRN Reason: PRN PAIN &/OR FEVER Comments: I have sent prescriptions to help you with your pain to [facility] in [place]. This does include a muscle relaxer called Flexeril (cyclobenzaprine) which can cause drowsiness so I would not recommend driving or operating any machinery while taking this medication. Please continue to have close follow-up with your primary care doctor and working with physical therapy. Return to the ER with any worsening symptoms. IMPRESSION: No acute bony abnormality. 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 No evidence of avascular necrosis. Degenerative disc disease in lower lumbar spine. Discharge Date/Time: 03/05/24 09:43
[2024-03-05 09:51] VITALS: BP 145/72; O2SAT 98
== END 2024-03-05 09:43 | disposition home or self-care (01) ==
LOC: ED 07:50
DX: M54.32 Sciatica, left side (principal)
CPT/HCPCS: 73502; 99283; A9270

== ENCOUNTER 2024-03-07 13:27 | Outpatient (CLI) | payer MEDICARE ==
[2024-03-07 19:45] LABS: INR 1.1 (0.8-1.2); PT - PROTHROMBIN TIME 11.8 secs (9.9-12.6)
[2024-03-07 20:06] LABS: BASOPHILS % (AUTO) 0.6 %; EOSINOPHILS # (AUTO) 0.2 10^3/uL (0.0-0.7); EOSINOPHILS % (AUTO) 3.4 %; HCT - HEMATOCRIT 44.4 % (42.0-52.0); HGB - HEMOGLOBIN 13.9 g/dL (14.0-18.0); LYMPHOCYTES # (AUTO) 1.3 10^3/uL (1.5-3.5); MEAN CORPUSCULAR HEMOGLOBIN 33.5 pg (27.0-31.0); MEAN CORPUSCULAR HGB CONC 31.3 g/dL (32.0-36.0); MEAN PLATELET VOLUME 12.1 fL (7.4-11.4); MONOCYTES # (AUTO) 0.8 10^3/uL (0.0-1.0); MONOCYTES % (AUTO) 14.3 %; NEUTROPHILS # (AUTO) 2.9 10^3/uL (1.5-6.6); NEUTROPHILS % (AUTO) 56.3 %; PLT - PLATELET COUNT 170 10^3/uL (130-450); RED BLOOD COUNT 4.15 10^6/uL (4.70-6.10); RED CELL DISTRIBUTION WIDTH 14.2 % (12.0-15.0); WHITE BLOOD COUNT 5.2 x10^3/uL (4.8-10.8)
[2024-03-07 20:22] LABS: PARTIAL THROMBOPLASTIN TIME 30.2 secs (24.9-33.3)
[2024-03-07 20:26] LABS: ALBUMIN 4.3 g/dL (3.2-5.5); ALBUMIN/GLOBULIN RATIO 1.5 (1.0-2.2); ALKALINE PHOSPHATASE 66 IU/L (42-121); ALT ALANINE AMINOTRANSFERASE 25 IU/L (10-60); AST ASPARTATE AMINOTRANSFERASE 15 IU/L (10-42); BILIRUBIN,TOTAL 0.6 mg/dL (0.2-1.0); BUN - BLOOD UREA NITROGEN 18 mg/dL (6-20); CALCIUM 10.1 mg/dL (8.5-10.3); CARBON DIOXIDE - CO2 33 mmol/L (21-32); CHLORIDE 104 mmol/L (101-111); CHOL/HDL RATIO 2.1 (<5.0); CHOLESTEROL 122 mg/dL; CREATININE 0.9 mg/dL (0.6-1.3); GFR - MDRD 81 (>89); GLUCOSE 115 mg/dL (74-104); HDL CHOLESTEROL 57 mg/dL; LDL CHOLESTEROL,CALCULATED 34 mg/dL; LDL/HDL RATIO 0.6 (<3.6); SODIUM 140 mmol/L (135-145); TOTAL PROTEIN 7.2 g/dL (6.4-8.9); TRIGLYCERIDES 156 mg/dL (48-352); VLDL CHOLESTEROL 31 mg/dL
[2024-03-07 20:43] LABS: ESTIMATED AVERAGE GLUCOSE 146 mg/dL (70-100); HEMOGLOBIN A1c% 6.7 % (4.27-6.07)
== END 2024-03-07 13:28 | disposition home or self-care (01) ==
LOC: LAB.S 13:27
PROVIDERS: ATTEND Internal Medicine
DX: I10 Essential (primary) hypertension (principal); I48.91 Unspecified atrial fibrillation; I25.10 Atherosclerotic heart disease of native coronary artery without angina pectoris; R73.01 Impaired fasting glucose
CPT/HCPCS: 36415; 80053; 80061; 83036; 83721; 85025; 85610; 85730

== ENCOUNTER 2024-03-19 07:20 | Outpatient (CLI) | payer MEDICARE ==
[2024-03-19] MEDS ORDERED: iohexoL-300 100 ML VIAL ONE ×2 (07:31→07:47)
--- NOTE | 2024-03-19 09:47 | CT Report ---
PROCEDURE: Angio Chest INDICATIONS: AORTIC ANEURYSM CONTRAST: Omni 300 80ml TECHNIQUE: After the administration of intravenous contrast, 2 mm axial images were acquired from the pulmonary apices to the posterior costophrenic angles during the arterial phase. In addition, 1 mm lung kernel and 5 mm soft tissue kernel reconstructions were performed. 3-dimensional coronal oblique maximum int ensity projection (MIP) reformats, 8 mm axial MIP, and 5 mm coronal and sagittal MPR reformats were t hen performed through the thorax. For radiation dose reduction, the following was used: automated exp osure control, adjustment of mA and/or kV according to patient size. COMPARISON: CTA chest on March 15, 2023 and December 06, 2022. Chest radiograph on December 06, 2017. FINDINGS: Image quality: Excellent. Large vessels: No filling defects within the opacified pulmonary arteries, accounting for motion and contrast timing. Ascending thoracic aorta measures 4.4 x 4.3 cm (19/53), previously 4.4 cm (13/47). N o aortic dissection. Lungs and pleura: No consolidation. No pleural effusions. No pneumothorax. Compared to CTA chest rula ed March 15, 2023, no new or enlarging solid pulmonary nodules or consolidation. Stable left lower lobe subpleural solid pulmonary nodule measuring 5 mm (21/59), stable. Mediastinum: Heart size is enlarged. No pericardial effusion. No large vessel abnormality. No mediast inal adenopathy by size criteria. Marked three-vessel coronary calcification. Small hiatal hernia. C ommon origin of the right brachiocephalic and left common carotid artery with ectasia at the common o rigin measuring 2.5 cm, stable (/29). Chest wall and lower neck: Thyroid is unremarkable. No axillary or supraclavicular adenopathy by size . Bones: No aggressive osseous abnormality. No acute fracture. Moderate to marked multilevel degenerati ve changes of the spine. Similar appearance of increased cortical sclerosis of the right fifth and si xth posterior ribs (19/32, 41). Upper Abdomen: Mild calcification of the abdominal aorta. Diffuse hypoattenuation of the liver. 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 2.Marked three-vessel coronary calcification. 3.Stable left lower lobe subpleural solid pulmonary nodule measuring 5 mm. 4.Diffuse hypoattenuation of the liver suggestive of steatosis. 5.Similar appearance of increased cortical sclerosis of the right fifth and sixth posterior ribs comp ared to CTA dated March 15, 2023 and new compared to CXR from December 06, 2017. Findings may represent sequela of remote injury. Malignancy is not excluded. If clinically warranted, a bone scan can be per formed for further evaluation. Reviewed by: Yumiko Bedoya MD on 03/19/2024 9:46 AM PDT Approved by: Yumiko Bedoya MD on 03/19/2024 9:46 AM PDT Station ID: [id number]
[2024-03-19] MEDS: iohexoL-300 100 ML VIAL IVP ONE (09:48)
== END 2024-03-19 07:21 | disposition home or self-care (01) ==
LOC: DI 07:20
PROVIDERS: ATTEND Internal Medicine
DX: I77.810 Thoracic aortic ectasia (principal); I25.10 Atherosclerotic heart disease of native coronary artery without angina pectoris; R91.1 Solitary pulmonary nodule
CPT/HCPCS: 71275; Q9967

== ENCOUNTER 2024-06-18 09:31 | Outpatient (CLI) | payer MEDICARE ==
[2024-06-18 23:01] LABS: ESTIMATED AVERAGE GLUCOSE 126 mg/dL (70-100)
== END 2024-06-18 09:32 | disposition home or self-care (01) ==
LOC: LAB.S 09:31
PROVIDERS: ATTEND Internal Medicine
DX: R73.01 Impaired fasting glucose (principal)
CPT/HCPCS: 36415; 83036

== ENCOUNTER 2024-07-18 08:38 | Outpatient (CLI) | payer MEDICARE ==
--- NOTE | 2024-07-18 21:53 | CT Report ---
PROCEDURE: Head WO INDICATIONS: MIGRAINE TECHNIQUE: Noncontrast 4.5 mm thick angled axial sections acquired from the foramen magnum to the vertex. For r adiation dose reduction, the following was used: automated exposure control, adjustment of mA and/or kV according to patient size. COMPARISON: MR brain 11/24/2015 FINDINGS: Image quality: Excellent. The ventricular system and cortical sulci demonstrate atrophy, consistent for patient's stated age. There are areas of hypodensity in the periventricular and subcortical white matter. There is no acut e intra or extra-axial fluid collection. No acute hemorrhage, mass lesion or midline shift. Brainst em is unremarkable. Globes are symmetrical. Sinuses are aerated. Osseous structures are intact. Prominent distal vertebra l artery calcifications. IMPRESSION: 1. No acute intracranial process. 2. Moderate atrophy and chronic microvascular ischemic changes. Reviewed by: Loida Mejía MD on 07/18/2024 9:52 PM PDT Approved by: Loida Mejía MD on 07/18/2024 9:52 PM PDT Station ID: [id number]
== END 2024-07-18 08:39 | disposition home or self-care (01) ==
LOC: DI 08:38
PROVIDERS: ATTEND Internal Medicine
DX: G43.909 Migraine, unspecified, not intractable, without status migrainosus (principal); G31.89 Other specified degenerative diseases of nervous system; I67.82 Cerebral ischemia